=== PATIENT | male | born 1955 | race Caucasian/White ===

== ENCOUNTER 2022-09-23 14:38 | Emergency (ER) | payer MEDICARE, OTHER ==
[~2022-09-23] VITALS: Ht 182.9 cm; Wt 99.8 kg
[2022-09-23 14:52] VITALS: BP 130/72
--- NOTE | 2022-09-23 14:57 | NUR ---
PT AMB USING WALKER TO BED 7
--- NOTE | 2022-09-23 15:10 | NUR ---
67YO MALE PT C/O HEMATURIA X3DAYS. 16FR LUBR[address] IN PLACE, STATES LAST REPLACEMENT ON 09/11 AT [facility] D/T URINARY RETENTION. STATES 08/11 LOWER ABD PRESSURE. DENIES N/V/D, FEVER, CHILLS, CHEST PAIN OR SOB. PT AAOX4, HOB POSITIONED PER COMFORT HX: BPH, HTN NKA
--- NOTE | 2022-09-23 15:18 | NUR ---
CAMACHO DONG AT BEDSIDE FOR EVALUATION
[2022-09-23 15:41] LABS: APPEARANCE,URINE CLEAR (CLEAR); BILIRUBIN,URINE 1+ (NEGATIVE); BLOOD, URINE 3+ (NEGATIVE); COLOR,URINE YELLOW (YELLOW); LEUKOCYTE ESTERASE ,URINE 3+ (NEGATIVE); NITRITE, URINE POSITIVE (NEGATIVE); UGLUCOSE NEGATIVE (NEGATIVE)
[2022-09-23 16:25] LABS: RBC,URINE TOO NUMEROUS TO COUN /HPF (0-5); WBC,URINE TOO MANY TO COUNT /HPF (0-5)
[2022-09-23 16:26] LABS: TRICHOMONAS,URINE None Seen /HPF (None Seen); YEAST,URINE None Seen /HPF (None Seen)
[2022-09-23] MEDS ORDERED: CIPR500T4 PO ×2 (16:33→17:02)
[2022-09-23 16:50] VITALS: BP 129/72
--- NOTE | 2022-09-23 16:50 | NUR ---
Patient discharged with v/s stable. Written and verbal after care instructions FOR UTI AND INDWELLING CATH CARE given and explained. AMB USING WALKER. All questions addressed prior to discharge. ID band removed. Patient advised to follow up with PMD. Rx of CIPRO given. Opportunity to ask questions provided and answered.
--- NOTE | 2022-09-23 16:55 | NUR ---
The patient's care was reviewed and supervised by Alberta Pappas RN.
== END 2022-09-23 16:50 | disposition home or self-care (01) ==
LOC: MED 14:38
DX: N39.0 Urinary tract infection, site not specified (principal); I10 Essential (primary) hypertension
CPT/HCPCS: 81001; 87086; 99283

== ENCOUNTER 2022-10-17 13:50 | Emergency (ER) | payer MEDICARE, OTHER ==
[~2022-10-17] VITALS: Ht 182.9 cm; Wt 102.1 kg
[~2022-10-17 13:50] MED LIST: CIPR500T4 PO
[2022-10-17 14:22] VITALS: BP 152/88
[2022-10-17 15:32] LABS: BILIRUBIN,URINE NEGATIVE (NEGATIVE); BLOOD, URINE 3+ (NEGATIVE); COLOR,URINE YELLOW (YELLOW); LEUKOCYTE ESTERASE ,URINE 3+ (NEGATIVE); NITRITE, URINE POSITIVE (NEGATIVE); UGLUCOSE NEGATIVE (NEGATIVE)
[2022-10-17 15:40] LABS: APPEARANCE,URINE HAZY (CLEAR)
[2022-10-17 15:52] LABS: RBC,URINE TOO NUMEROUS TO COUN /HPF (0-5); WBC,URINE TOO MANY TO COUNT /HPF (0-5)
--- NOTE | 2022-10-17 16:50 | NUR ---
PT AMBULATED TO ER BED 3
--- NOTE | 2022-10-17 17:00 | NUR ---
ASSUMED PATIENT CARE, NURSING ASSESSMENT COMPLETED. SEEN AND EVALUATED BY RONALDO CONNELLY COMPLETED.
--- NOTE | 2022-10-17 17:19 | NUR ---
WILKINSON CATHETER REPLACED PER DR GUZMAN.
[2022-10-17 17:42] VITALS: BP 152/88
--- NOTE | 2022-10-17 17:43 | NUR ---
Patient discharged with v/s stable. Written and verbal after care instructions given and explained. Patient verbalized understanding. Ambulatory with steady gait. All questions addressed prior to discharge. Advised to follow up with PMD.
== END 2022-10-17 17:43 | disposition home or self-care (01) ==
LOC: MED 13:50
DX: Z46.6 Encounter for fitting and adjustment of urinary device (principal); T83.84XA Pain due to genitourinary prosthetic devices, implants and grafts, initial encounter; I10 Essential (primary) hypertension; Y92.89 Other specified places as the place of occurrence of the external cause
CPT/HCPCS: 51702; 81001; 87086; 99284

== ENCOUNTER 2022-11-23 16:18 | Emergency (ER) | payer MEDICARE, OTHER ==
[~2022-11-23] VITALS: Ht 182.9 cm; Wt 90.7 kg
--- NOTE | 2022-11-23 17:22 | NUR ---
Patient ambulated with walker to bed 7.
[2022-11-23 17:23] VITALS: BP 169/89
--- NOTE | 2022-11-23 17:45 | NUR ---
# 16 FR Dominguez catheter with 10 ml utilizing sterile technique. Immediate return of 200 ml yellow urine noted. Bedside drainage bag placed below level of bladder. Urine sample collected and sent to lab. Pt tolerated procedure well.
[2022-11-23 18:09] LABS: BILIRUBIN,URINE NEGATIVE (NEGATIVE); BLOOD, URINE 3+ (NEGATIVE); COLOR,URINE YELLOW (YELLOW); LEUKOCYTE ESTERASE ,URINE TRACE (NEGATIVE); NITRITE, URINE NEGATIVE (NEGATIVE); UGLUCOSE NEGATIVE (NEGATIVE)
--- NOTE | 2022-11-23 18:11 | NUR ---
Patient being evaluated by physician at bedside.
[2022-11-23 18:25] LABS: APPEARANCE,URINE HAZY (CLEAR); RBC,URINE >100 /HPF (0-5)
[2022-11-23] MEDS ORDERED: CIPR500T4 PO (18:36)
[2022-11-23 18:53] VITALS: BP 121/81
--- NOTE | 2022-11-23 18:53 | NUR ---
Patient discharged with v/s stable. Written and verbal after care instructions given. Patient alert, oriented and verbalized understanding of instructions. Ambulatory with steady gait. All questions addressed prior to discharge. ID band removed. Patient advised to follow up with PMD. Rx of Cipro given. Opportunity to ask questions provided and answered.
== END 2022-11-23 17:22 | disposition home or self-care (01) ==
LOC: MED 16:18
DX: T83.098A Other mechanical complication of other urinary catheter, initial encounter (principal); N30.01 Acute cystitis with hematuria; I10 Essential (primary) hypertension; Z79.2 Long term (current) use of antibiotics; Y84.6 Urinary catheterization as the cause of abnormal reaction of the patient, or of later complication, without mention of misadventure at the time of the procedure
CPT/HCPCS: 51702; 81001; 99284

== ENCOUNTER 2022-12-25 14:48 | Emergency (ER) | payer MEDICARE, OTHER ==
[~2022-12-25] VITALS: Ht 185.4 cm; Wt 99.3 kg
[2022-12-25 15:24] VITALS: PULSE 72; RESP 18; TEMP 98.3; O2SAT 100
--- NOTE | 2022-12-25 16:40 | NUR ---
F/C REMOVED, NEW 16F F/C INSERTED USING STERILE TECHNIQUE WITH GOOD URINE OUTPUT
[2022-12-25 17:22] LABS: BILIRUBIN,URINE NEGATIVE (NEGATIVE); BLOOD, URINE 3+ (NEGATIVE); COLOR,URINE YELLOW (YELLOW); LEUKOCYTE ESTERASE ,URINE 2+ (NEGATIVE); NITRITE, URINE NEGATIVE (NEGATIVE); UGLUCOSE NEGATIVE (NEGATIVE)
[2022-12-25 17:37] LABS: APPEARANCE,URINE HAZY (CLEAR)
[2022-12-25 17:38] LABS: RBC,URINE >100 /HPF (0-5)
== END 2022-12-25 16:59 | disposition home or self-care (01) ==
LOC: MED 14:48
DX: R30.0 Dysuria (principal); T83.098A Other mechanical complication of other urinary catheter, initial encounter; R33.9 Retention of urine, unspecified; N40.0 Benign prostatic hyperplasia without lower urinary tract symptoms; I10 Essential (primary) hypertension; Z79.899 Other long term (current) drug therapy
CPT/HCPCS: 51702; 81001; 87086; 99284

== ENCOUNTER 2023-02-06 14:47 | Emergency (ER) | payer MEDICARE, OTHER ==
[~2023-02-06] VITALS: Ht 182.9 cm; Wt 97.1 kg
[~2023-02-06 14:47] MED LIST changes: +SULF-59 PO
[2023-02-06 15:12] VITALS: BP 124/81; PULSE 74; RESP 20; TEMP 98; O2SAT 100
== END 2023-02-06 17:29 | disposition home or self-care (01) ==
LOC: MED 14:47
DX: R33.9 Retention of urine, unspecified (principal); N40.0 Benign prostatic hyperplasia without lower urinary tract symptoms; I10 Essential (primary) hypertension; Z79.899 Other long term (current) drug therapy
CPT/HCPCS: 81002; 99282